=== PATIENT | female | born 1985 | race Two or more races ===

== ENCOUNTER 2017-01-28 16:01 | Emergency (ER) | payer MEDICAID ==
[~2017-01-28] VITALS: Ht 162.6 cm; Wt 117.9 kg
[2017-01-28] MEDS ORDERED: NKM (16:14)
[2017-01-28 16:46] VITALS: BP 123/85
[2017-01-28 16:46] LABS: APPEARANCE,URINE CLEAR; KETONES,URINE 1+ (NEGATIVE); LEUKOCYTE ESTERASE ,URINE 1+ (NEGATIVE); NITRITE,URINE NEGATIVE (NEGATIVE); PH,URINE 5 (4.5-8.0); PROTEIN,URINE 1+ (NEGATIVE); UROBILINOGEN,URINE 1 MG/DL (0.0-1.0)
[2017-01-28 17:17] LABS: BACTERIA,URINE FEW /HPF; SQUAMOUS EPITHELIAL CELL,UR FEW /LPF (NONE/OCC); WBC,URINE 0-2 /HPF (0 - 2)
--- NOTE | 2017-01-28 17:43 | Diagnostic Imaging Report ---
Indication: Right-sided pelvic pain, lower abdominal pain and 3 days, negative urine test Technique: Transabdominal and transvaginal images Comparison: None Findings: Uterus measures 9.1 cm length by 6.3 cm AP. Endometrium measures 7 mm thick. There are multiple myometrial fibroids. Largest of these measures 4.3 cm in diameter. There is a moderate amount of free cul-de-sac fluid. Right ovary measures 4 cm in length and contains a hemorrhagic follicle. Left ovary measures 2.8 cm in length. Impression: Uterine fibroids Hemorrhagic right ovarian follicle. Possibly source of patient's pain Moderate free cul-de-sac fluid, most likely physiologic
[2017-01-28 18:09] VITALS: BP 120/81
[2017-01-28] MEDS ORDERED: TRAMADOL HCL50 MG ORAL (18:09)
[2017-01-28 18:11] VITALS: BP 120/81
--- NOTE | 2017-01-28 19:09 | Emergency Room Report ---
History of Present Illness General Chief Complaint: Pelvic Pain Source: Patient Present Illness HPI 31-year-old female presents ED for evaluation. Patient was referred by PMD for evaluation of lower abdominal pain x3 days. Patient starts pain as suprapubic, pressure, 5/10, nonradiating. Denies dysuria or hematuria. Denies fevers or chills. Denies flank pain. Denies vaginal bleeding or discharge. No other aggravating or leading factors. Denies any other associated symptoms Allergies: Coded Allergies: No Known Allergies (Unverified , 01/28/17) Patient History Past Medical History: none Past Surgical History: none Pertinent Family History: none Social History: Denies: smoking, alcohol use, drug use Last Menstrual Period: 01/09/17 Now: No Immunizations: UTD Reviewed Nursing Documentation: PMH: Agreed, PSxH: Agreed Nursing Documentation-PMH Past Medical History: No Stated History Review of Systems All Other Systems: negative except mentioned in HPI Physical Exam Vital Signs Date Time Temp Pulse Resp B/P (MAP) Pulse Ox O2 Delivery O2 Flow Rate FiO2 01/28/17 16:09 97.7 77 16 123/85 100 Room Air Sp02 EP Interpretation: reviewed, normal General Appearance: no apparent distress, alert, GCS 15, non-toxic Head: normocephalic, atraumatic Eyes: bilateral eye normal inspection, bilateral eye PERRL ENT: hearing grossly normal, normal pharynx, no angioedema, normal voice Neck: full range of motion, supple/symm/no masses Respiratory: chest non-tender, lungs clear, normal breath sounds, speaking full sentences Cardiovascular #1: regular rate, rhythm, no edema Cardiovascular #2: 2+ carotid (R), 2+ carotid (L), 2+ radial (R), 2+ radial (L) , 2+ dorsalis pedis (R), 2+ dorsalis pedis (L) Gastrointestinal: normal bowel sounds, soft, non-distended, no guarding, no rebound, tenderness - suprapubic Rectal: deferred Genitourinary: normal inspection, no CVA tenderness Musculoskeletal: back normal, gait/station normal, normal range of motion, non- tender Neurologic: alert, oriented x3, responsive, motor strength/tone normal, sensory intact, speech normal Psychiatric: judgement/insight normal, memory normal, mood/affect normal, no suicidal/homicidal ideation Reflexes: 3+ bicep (R), 3+ bicep (L), 3+ tricep (R), 3+ tricep (L), 3+ knee (R) , 3+ knee (L) Skin: normal color, no rash, warm/dry, well hydrated Lymphatic: no adenopathy Medical Decision Making Diagnostic Impression: Primary Impression: Fibroids Qualified Codes: D25.9 - Leiomyoma of uterus, unspecified Additional Impression: Ovarian cyst Qualified Codes: N83.209 - Unspecified ovarian cyst, unspecified side ER Course Hospital Course 31-year-old female presents to ED complaining of lower abdominal pain Differential diagnoses include: gastrits, gastroenterits, ectopic , ovarian torsion/cyst, UTI Clinical course Patient placed on stretcher in ED. After initial history and physical I ordered UA, pelvic ultrasound. Pelvic ultrasound- fibroids, ruptured ovarian cyst I discussed findings with the patient. Recommend followup with RESIDENT PROGRAMS ASSISTANT and appropriate analgesia Diagnosis - fibroids, ovarian cyst Stable and discharged to home with Rx Tramadol. Followup with PMD/RESIDENT PROGRAMS ASSISTANT. Return to ED if symptoms recur or worsen Labs Test 01/28/17 16:25 Urine Color Yellow Urine Appearance Clear Urine pH 5 (4.5-8.0) Urine Specific [place] 1.025 (1.005-1.035) Urine Protein 1+ (NEGATIVE) Urine Glucose (UA) Negative (NEGATIVE) Urine Ketones 1+ (NEGATIVE) Urine Occult Blood 1+ (NEGATIVE) Urine Nitrite Negative (NEGATIVE) Urine Bilirubin Negative (NEGATIVE) Urine Urobilinogen 1 MG/DL (0.0-1.0) Urine Leukocyte Esterase 1+ (NEGATIVE) Urine RBC 2-4 /HPF (0 - 2) Urine WBC 0-2 /HPF (0 - 2) Urine Squamous Epithelial Cells Few /LPF (NONE/OCC) Urine Bacteria Few /HPF (NONE) Urine HCG, Qualitative Negative CT/MRI/US Diagnostic Results CT/MRI/US Diagnostic Results : Imaging Test Ordered: Pelvic US Impression hemorrhagic cyst, fibroids Last Vital Signs Date Time Temp Pulse Resp B/P (MAP) Pulse Ox O2 Delivery O2 Flow Rate FiO2 01/28/17 18:15 97.7 01/28/17 18:11 71 17 120/81 100 Room Air Status: improved Disposition: HOME, SELF-CARE Condition: Stable Scripts Tramadol Hcl* (ULTRAM*) 50 Mg Tablet 50 MG ORAL Q6H Y for For Pain, #20 TAB 0 Refills Prov: BRIDGET FRASER M.D. 01/28/17 Patient Instructions: Abdominal or Pelvic Ultrasound, [id number] BRIDGET FRASER M.D. Jan 28, 2017 19:09
== END 2017-01-28 18:16 | disposition home or self-care (01) ==
LOC: EMR 16:35
DX: D25.9 Leiomyoma of uterus, unspecified (principal); N83.209 Unspecified ovarian cyst, unspecified side
CPT/HCPCS: 76830; 76856; 81003; 81025; 99284

== ENCOUNTER 2017-03-02 09:40 | Emergency (ER) | payer MEDICAID ==
[~2017-03-02] VITALS: Ht 162.6 cm; Wt 119.3 kg
[~2017-03-02 09:40] MED LIST: NKM; TRAMADOL HCL50 MG ORAL
[2017-03-02] MEDS ORDERED: NORCO 5-325 TA1 EACH ORAL (09:49)
[2017-03-02 11:21] LABS: BASOPHILS % (AUTO) 1.2 % (0.0-2.0); EOSINOPHILS % (AUTO) 5.3 % (0.0-3.0); HEMATOCRIT 40.5 % (37.0-47.0); HEMOGLOBIN 13.3 G/DL (12.0-16.0); LYMPHOCYTES % (AUTO) 26.4 % (20.0-45.0); MEAN CORPUSCULAR VOLUME 88 FL (80-99); MONOCYTES % (AUTO) 5.5 % (1.0-10.0); NEUTROPHILS % (AUTO) 61.7 % (45.0-75.0); PLATELET COUNT 267 K/UL (150-450); RED BLOOD COUNT 4.62 M/UL (4.20-5.40); RED CELL DISTRIBUTION WIDTH 12.5 % (11.6-14.8); WHITE BLOOD COUNT 6.8 K/UL (4.8-10.8)
[2017-03-02 11:24] LABS: APPEARANCE,URINE CLEAR; GLUCOSE, URINE (UA) NEGATIVE (NEGATIVE); KETONES,URINE NEGATIVE (NEGATIVE); LEUKOCYTE ESTERASE ,URINE 2+ (NEGATIVE); NITRITE,URINE NEGATIVE (NEGATIVE); PH,URINE 5 (4.5-8.0); PROTEIN,URINE NEGATIVE (NEGATIVE)
[2017-03-02 11:25] LABS: COLOR,URINE YELLOW
[2017-03-02 11:36] LABS: BILIRUBIN, URINE NEGATIVE (NEGATIVE); UROBILINOGEN,URINE NORMAL MG/DL (0.0-1.0)
[2017-03-02 11:37] LABS: ANION GAP 9 mmol/L (5-15); BLOOD UREA NITROGEN 11 mg/dL (7-18); CALCIUM 7.9 MG/DL (8.5-10.1); CARBON DIOXIDE 25 MMOL/L (21-32); CHLORIDE 102 MMOL/L (98-107); CREATININE 0.8 MG/DL (0.55-1.30); SODIUM 136 MMOL/L (136-145)
[2017-03-02 11:38] LABS: ALANINE AMINOTRANSFERASE 22 U/L (12-78); ALBUMIN 3.4 G/DL (3.4-5.0); ALBUMIN/GLOBULIN RATIO 0.8 (1.0-2.7); ALKALINE PHOSPHATASE 54 U/L (46-116); ASPARTATE AMINO TRANSFERASE 19 U/L (15-37); BILIRUBIN,TOTAL 0.4 MG/DL (0.2-1.0)
[2017-03-02 12:45] VITALS: BP 117/82
[2017-03-02 12:46] VITALS: BP 117/82
--- NOTE | 2017-03-02 13:35 | Emergency Room Report ---
History of Present Illness General Chief Complaint: Abdominal Pain Source: Patient Present Illness HPI 31-year-old female with 2-3 days of right upper quadrant pain Pain worse with eating Denies nausea, vomiting, diarrhea, fever or chills Patient has had multiple children previously No control No known history of gallstone disease Has known fibroids Allergies: Coded Allergies: No Known Allergies (Unverified , 01/28/17) Patient History Past Medical History: none Past Surgical History: none Pertinent Family History: none Social History: Denies: smoking, alcohol use, drug use Last Menstrual Period: 02/05/17 Now: No Immunizations: UTD Reviewed Nursing Documentation: PMH: Agreed, PSxH: Agreed Nursing Documentation-PMH Past Medical History: No Stated History Review of Systems All Other Systems: negative except mentioned in HPI Physical Exam Vital Signs Date Time Temp Pulse Resp B/P (MAP) Pulse Ox O2 Delivery O2 Flow Rate FiO2 03/02/17 09:44 98.1 74 17 115/70 100 Room Air Sp02 EP Interpretation: reviewed, normal General Appearance: normal inspection, well appearing, no apparent distress, alert, GCS 15, non-toxic Head: normocephalic, atraumatic Eyes: bilateral eye PERRL, bilateral eye EOMI ENT: normal ENT inspection, hearing grossly normal, normal pharynx, no angioedema, normal voice, TMs + canals normal, uvula midline, moist mucus membranes Neck: normal inspection, full range of motion, supple, thyroid normal, no meningismus, no bony tend Respiratory: normal inspection, lungs clear, normal breath sounds, no rhonchi, no respiratory distress, no retraction, no accessory muscle use, no wheezing, speaking full sentences Cardiovascular #1: regular rate, rhythm, no edema, no JVD, normal capillary refill Gastrointestinal: normal inspection, normal bowel sounds, soft, no mass, no peritonitis, non-distended, no guarding, no hernia, no pulsatile mass, other - mild RUQ ttp, no peritonitis Genitourinary: no CVA tenderness Musculoskeletal: normal inspection, back normal, normal range of motion, no calf tenderness, pelvis stable, Jhoan's Sign negative Neurologic: normal inspection, alert, oriented x3, responsive, health safety instructor III-XII nml as tested, motor strength/tone normal, cerebellar normal, normal gait, speech normal Psychiatric: normal inspection, judgement/insight normal, mood/affect normal, no suicidal/homicidal ideation, no delusions Skin: normal inspection, normal color, no rash Lymphatic: normal inspection, no adenopathy Medical Decision Making Diagnostic Impression: Primary Impression: Cholelithiasis Qualified Codes: K80.80 - Other cholelithiasis without obstruction ER Course Ultrasound shows large gallstone versus possible multiple smaller stones Mild wall thickening no Pericholecystic fluid Vital signs are stable, afebrile Labs did not demonstrate leukocytosis or LFTs abnormality Diagnosis cholelithiasis, likely cholecystitis given above normal findings advised patient avoid spicy food, asked primary care doctor for referral for general surgery ER course: Patient has remained stable during ED stay. Disposition: Patient is to be discharged to home. Patient is instructed to follow up with their primary care doctor within 5 days. Patient is instructed to follow up with general surgery in 1 week Strict return precautions discussed with patient such as fever, chills, worsening/severe pain, nausea, vomiting, which may indicate severe illness. Patient verbalizes understanding and agrees with plan. Please note that this Emergency Department Report was dictated using [employer] machine operator technology software, occasionally this can lead to erroneous entry secondary to interpretation by the dictation equipment Last Vital Signs Date Time Temp Pulse Resp B/P (MAP) Pulse Ox O2 Delivery O2 Flow Rate FiO2 03/02/17 12:46 98.1 80 17 117/82 99 Room Air Status: improved Disposition: HOME, SELF-CARE Condition: Improved Referrals: [facility] [place],REFERRING Patient Instructions: Cholelithiasis, [id number] Additional Instructions: please do not eat any spicy food ask your doctor for referral to general surgeon to evaluate you for gallstones return to ER for worsening pain associated with fever and vomiting RAS NEWELL M.D. Mar 02, 2017 13:35
--- NOTE | 2017-03-06 10:34 | Diagnostic Imaging Report ---
Indication: Abdominal pain Technique: Ultrasound of the abdomen. Comparison: None Findings: Examination is technically limited. The pancreas is incompletely visualized. Visualized portions are unremarkable. Liver is enlarged measuring approximately 17.6 cm. No focal liver lesions are identified. Visualized portions of the main portal vein and the hepatic veins are grossly unremarkable although incompletely evaluated. The gallbladder is unremarkable without evidence of stones. Gallbladder wall thickness is within normal limits. Sonographic Hernandez's is negative. Common bile duct measures 3 mm. Bilateral kidneys demonstrate normal echogenicity. There is an apparent cyst in the left kidney measuring 2.1 cm. No sonographically evident renal stones are identified. The spleen is normal in size and echogenicity. The visualized aorta is normal in caliber. Visualized portions of the inferior vena cava are unremarkable. Impression: Technically limited examination. Echogenic shadowing nonmobile focus in the region of the gallbladder suggestive of gallstone. Sonographic Hernandez sign reportedly positive. Consider CT or HIDA scan for further evaluation. Left renal cyst. Mild hepatomegaly.
== END 2017-03-02 12:46 | disposition home or self-care (01) ==
LOC: EMR 10:00
DX: K80.20 Calculus of gallbladder without cholecystitis without obstruction (principal)
CPT/HCPCS: 36415; 76700; 80053; 81003; 81025; 83690; 85025; 99282

== ENCOUNTER 2018-09-20 13:10 | Emergency (ER) | payer MEDICAID, OTHER ==
[~2018-09-20] VITALS: Ht 162.6 cm; Wt 124.3 kg
[~2018-09-20 13:10] MED LIST changes: +NORCO 5-325 TA1 EACH ORAL
[2018-09-20 13:17] VITALS: BP 144/92
--- NOTE | 2018-09-20 13:20 | NUR ---
ED Nurse Note: Patient walked into ED c/o right hand swelling and pain at work. patient is alert awake x4 ambulatory breathing unlabored and even.
[2018-09-20] MEDS ORDERED: Naproxen 500mg tab ORAL ONE (13:45)
--- NOTE | 2018-09-20 13:57 | Emergency Room Report ---
History of Present Illness General Chief Complaint: Upper Extremity Injury Source: Patient Present Illness HPI 33-year-old female with no significant past medical history here complaining of pain and swelling right hand that started at work today. Patient denies any fall or injury. Reports that she was carrying supplies at work as she noticed her hand started to swell and having a 10 out of 10 pain without radiation. Denies tingling and numbness. Has not taken medication for pain. Patient is right-handed and reports that she usually lifts heavy objects at work. Denies all other injuries, chest pain, shortness of breath, palpitation, and no other associated symptoms. Patient is requesting a Worker's Compensation Allergies: Coded Allergies: No Known Allergies (Unverified , 01/28/17) Patient History Past Medical History: see triage record Past Surgical History: unable to obtain Pertinent Family History: none Last Menstrual Period: 09/16/18 Now: No Immunizations: UTD Reviewed Nursing Documentation: PMH: Agreed; PSxH: Agreed Nursing Documentation-PMH Past Medical History: No Stated History Review of Systems All Other Systems: negative except mentioned in HPI Physical Exam Vital Signs Date Time Temp Pulse Resp B/P (MAP) Pulse Ox O2 Delivery O2 Flow Rate FiO2 09/20/18 13:17 98.1 80 18 144/92 (109) 96 Room Air Sp02 EP Interpretation: reviewed, normal General Appearance: normal inspection, well appearing, no apparent distress, alert, GCS 15 Head: normocephalic, atraumatic Eyes: bilateral eye normal inspection, bilateral eye PERRL ENT: normal ENT inspection, hearing grossly normal, normal pharynx Neck: normal inspection, full range of motion, supple Respiratory: normal inspection, chest non-tender, lungs clear, normal breath sounds, no wheezing Cardiovascular #1: normal inspection, regular rate, rhythm, no edema, no gallop , normal capillary refill Cardiovascular #2: 2+ radial (R), 2+ radial (L) Gastrointestinal: normal inspection, non tender, soft Rectal: deferred Genitourinary: no CVA tenderness Musculoskeletal: back normal, non-tender, swelling - Right hand Neurologic: normal inspection, alert, oriented x3, responsive Psychiatric: normal inspection, judgement/insight normal Skin: no rash Lymphatic: normal inspection, no adenopathy Medical Decision Making PA Attestation All my diagnosis and treatment plans were reviewed ad discussed with my supervising physician Dr. Dolan Diagnostic Impression: Primary Impression: Sprain of right hand ER Course 33-year-old female with no significant past medical history here complaining of pain and swelling right hand that started at work today. Patient denies any fall or injury. Reports that she was carrying supplies at work as she noticed her hand started to swell and having a 10 out of 10 pain without radiation. Denies tingling and numbness. Has not taken medication for pain. Patient is right-handed and reports that she usually lifts heavy objects at work. Denies all other injuries, chest pain, shortness of breath, palpitation, and no other associated symptoms. Patient is requesting a Worker's Compensation Ddx considered but are not limited to : Hand sprain, strain, fracture Vital signs: are WNL, pt. is afebrile H&PE are most consistent with: ORDERS: Hand x-ray, naproxen, ED INTERVENTIONS: Chad wrap DISCHARGE: At this time pt. is stable for d/c to home. Will provide printed patient care instructions, and any necessary prescriptions. Care plan and follow up instructions have been discussed with the patient prior to discharge. Take medication as directed alternate between icing and heating the affected area follow-up with your primary care provider Other X-Ray Diagnostic Results Other X-Ray Diagnostic Results : X-Ray ordered: hand # of Views/Limited Vs Complete: 2 View Indication: Pain EP Interpretation: Yes SERA Xray: Interpretation reviewed, by supervising MD, and agrees with findings. Interpretation: no dislocation, no soft tissue swelling, no fractures Impression: No acute disease Electronically Signed by: Patrick Short PA-C Last Vital Signs Date Time Temp Pulse Resp B/P (MAP) Pulse Ox O2 Delivery O2 Flow Rate FiO2 09/20/18 13:17 98.1 80 18 144/92 (109) 96 Room Air Disposition: HOME, SELF-CARE Condition: Stable Scripts Naproxen* (NAPROXEN*) 500 Mg Tablet 500 MG ORAL TWICE A DAY, #30 TAB Prov: Patrick Washington 09/20/18 Patient Instructions: Edema, [id number] Additional Instructions: Swelling and pain secondary to splinting of your right hand keep the Chad bandage on avoid strenuous physical activity alternate is been icing and heating the affected area take medication as directed follow-up with your primary care provider Patrick Washington Sep 20, 2018 13:57
[2018-09-20] MEDS ORDERED: NAPROXEN500 M2 ORAL (13:58)
[2018-09-20 14:14] VITALS: BP 144/92
--- NOTE | 2018-09-20 14:14 | NUR ---
ER DISCHARGE NOTE: Patient is cleared to be discharged per BRANDIN GORE , pt is aox4, on room air, with stable vital signs. pt was given dc and prescription instructions, pt was able to verbalize understanding, pt id band removed without complications. pt is able to ambulate with steady gait. pt took all belongings.
--- NOTE | 2018-09-20 14:34 | Diagnostic Imaging Report ---
EXAM: XR Right Hand Complete, 3 or More Views CLINICAL HISTORY: TRAUMA TECHNIQUE: Frontal, lateral and oblique views of the right hand. COMPARISON: No relevant prior studies available. FINDINGS: Bones/joints: No acute displaced fracture or dislocation identified. Visualized joint spaces appear unremarkable. Soft tissues: Mild soft tissue swelling adjacent to the metacarpophalangeal joints. No radiodense foreign bodies. No soft tissue gas lucencies. IMPRESSION: 1. No acute displaced fracture or dislocation identified. 2. Mild soft tissue swelling adjacent to the metacarpophalangeal joints. No radiodense foreign bodies. No soft tissue gas lucencies.
== END 2018-09-20 14:14 | disposition home or self-care (01) ==
LOC: EMR 13:57
DX: S63.91XA Sprain of unspecified part of right wrist and hand, initial encounter (principal); X58.XXXA Exposure to other specified factors, initial encounter; Y92.9 Unspecified place or not applicable; Y99.0 Civilian activity done for income or pay
CPT/HCPCS: 99283

== ENCOUNTER 2019-08-09 12:56 | Emergency (ER) | payer OTHER ==
[~2019-08-09] VITALS: Ht 162.6 cm; Wt 123.8 kg
[~2019-08-09 12:56] MED LIST changes: +NAPROXEN500 M2 ORAL
[2019-08-09 13:09] VITALS: BP 116/66
--- NOTE | 2019-08-09 13:10 | NUR ---
ED Nurse Note: Pt from home abd pain since this morning. Pt is AOx4, calm and cooperative. Denies N/V/D. VSS, on RA, afebrile on traige. Placed on bed.
[2019-08-09] MEDS ORDERED: Omnipaque-300 100ml vial INJ PRN (13:45)
--- NOTE | 2019-08-09 13:48 | Emergency Room Report ---
History of Present Illness General Chief Complaint: Abdominal Pain Source: Patient (Gentry Dolan MD) Present Illness HPI Patient is a 33-year-old female presents after increased abdominal pain. Reports bilateral abdominal pain radiating to her lower abdomen. Denies any fever. Increased nausea. Pain is worse with supine position. Patient states she did not eat this morning. Had not been having any vomiting or diarrhea. Reports having similar symptoms with ovarian cyst rupture in the past. Denies any diarrhea. No prior abdominal surgeries. (Gentry Dolan MD) Allergies: Coded Allergies: No Known Allergies (Unverified , 01/28/17) COVID-19 Screening Contact w/high risk pt: No Recent Travel to affected area: No Experienced COVID-19 symptoms?: No COVID-19 Testing performed FLUID POWER MECHANIC: No (Gentry Dolan MD) Patient History Past Medical History: see triage record Last Menstrual Period: 08/03/19 Now: No Reviewed Nursing Documentation: PMH: Agreed; PSxH: Agreed (Gentry Dolan MD) Nursing Documentation-PMH Past Medical History: No History, Except For (Gentry Dolan MD) Review of Systems All Other Systems: negative except mentioned in HPI (Gentry Dolan MD) Physical Exam Vital Signs Date Time Temp Pulse Resp B/P (MAP) Pulse Ox O2 Delivery O2 Flow Rate FiO2 08/09/19 13:01 98.4 86 16 116/66 (83) 100 Room Air Sp02 EP Interpretation: reviewed, normal General Appearance: normal inspection, well appearing, no apparent distress, alert, GCS 15, obese Head: atraumatic ENT: normal ENT inspection, hearing grossly normal, normal voice Neck: normal inspection, full range of motion, supple, no bony tend Respiratory: normal inspection, lungs clear, normal breath sounds, no respiratory distress, no retraction, no wheezing Cardiovascular #1: regular rate, rhythm, no edema Gastrointestinal: normal bowel sounds, soft, no guarding, no hernia, tenderness - right upper abdomen Genitourinary: no CVA tenderness Musculoskeletal: normal inspection, back normal, normal range of motion Neurologic: alert, motor strength/tone normal, tower dragline operator III-XII nml as tested, oriented x3, responsive, speech normal, normal inspection Psychiatric: normal inspection, judgement/insight normal, mood/affect normal (Gentry Dolan MD) Medical Decision Making Diagnostic Impression: Primary Impression: Cholelithiasis Additional Impressions: Leukocytosis Fibroids ER Course Patient presented for abdominal pain. Differential diagnosis include was not limited to cholelithiasis, bowel obstruction, kidney stone among others. Because of complexity of patient's case laboratory tests and imaging studies were ordered.Patient laboratory testing showed some slight leukocytosis. She was given IV pain medications. Patient was endorsed to Dr. Smith pending CT imaging for further evaluation of abdominal pain. (Gentry Dolan MD) ER Course Please see above note. Patient signed out to me to review CT scan of the abdomen. Repeat exam 1725. Pain improved. No guarding or rebound. Discussed results, treatment plan and need to follow up. Laboratory Tests Test 08/09/19 13:50 08/09/19 14:30 White Blood Count 15.7 K/UL (4.8-10.8) H Red Blood Count 4.73 M/UL (4.20-5.40) Hemoglobin 13.2 G/DL (12.0-16.0) Hematocrit 41.5 % (37.0-47.0) Mean Corpuscular Volume 88 FL (80-99) Mean Corpuscular Hemoglobin 27.9 PG (27.0-31.0) Mean Corpuscular Hemoglobin Concent 31.7 G/DL (32.0-36.0) L Red Cell Distribution Width 14.1 % (11.6-14.8) Platelet Count 274 K/UL (150-450) Mean Platelet Volume 9.4 FL (6.5-10.1) Neutrophils (%) (Auto) 82.6 % (45.0-75.0) H Lymphocytes (%) (Auto) 9.6 % (20.0-45.0) L Monocytes (%) (Auto) 4.5 % (1.0-10.0) Eosinophils (%) (Auto) 2.6 % (0.0-3.0) Basophils (%) (Auto) 0.7 % (0.0-2.0) Prothrombin Time 10.7 SEC (9.30-11.50) Prothrombin Time INR 1.0 (0.9-1.1) Activated Partial Thromboplast Time 26 SEC (23-33) Sodium Level 137 MMOL/L (136-145) Potassium Level 4.1 MMOL/L (3.5-5.1) Chloride Level 102 MMOL/L (98-107) Carbon Dioxide Level 25 MMOL/L (21-32) Anion Gap 10 mmol/L (5-15) Blood Urea Nitrogen 13 mg/dL (7-18) Creatinine 0.9 MG/DL (0.55-1.30) Estimated Glomerular Filtration Rate > 60 mL/min (>60) Glucose Level 93 MG/DL (74-106) Calcium Level 8.5 MG/DL (8.5-10.1) Total Bilirubin 0.5 MG/DL (0.2-1.0) Aspartate Amino Transferase (AST) 46 U/L (15-37) H Alanine Aminotransferase (ALT) 31 U/L (12-78) Alkaline Phosphatase 61 U/L (46-116) Total Protein 7.3 G/DL (6.4-8.2) Albumin 3.5 G/DL (3.4-5.0) Globulin 3.8 g/dL Albumin/Globulin Ratio 0.9 (1.0-2.7) L Lipase 143 U/L (73-393) Urine Color Yellow Urine Appearance Clear Urine pH 5 (4.5-8.0) Urine Specific [place] 1.020 (1.005-1.035) Urine Protein 1+ (NEGATIVE) H Urine Glucose (UA) Negative (NEGATIVE) Urine Ketones Negative (NEGATIVE) Urine Blood 5+ (NEGATIVE) H Urine Nitrite Negative (NEGATIVE) Urine Bilirubin Negative (NEGATIVE) Urine Urobilinogen Normal MG/DL (0.0-1.0) Urine Leukocyte Esterase 1+ (NEGATIVE) H Urine RBC 15-20 /HPF (0 - 2) H Urine WBC 5-10 /HPF (0 - 2) H Urine Squamous Epithelial Cells Many /LPF (NONE/OCC) H Urine Bacteria Few /HPF (NONE) Urine HCG, Qualitative Negative (NEGATIVE) (Hubert Smith MD) CT/MRI/US Diagnostic Results CT/MRI/US Diagnostic Results : Imaging Test Ordered: Abdomen pelvis Impression IMPRESSION: 1. Trace pelvic free fluid is likely physiologic. 2. Cholelithiasis. No biliary dilatation. (Hubert Smith MD) Last Vital Signs Date Time Temp Pulse Resp B/P (MAP) Pulse Ox O2 Delivery O2 Flow Rate FiO2 08/09/19 13:09 86 16 Room Air 08/09/19 13:09 98.4 116/66 100 Status: unchanged (Gentry Dolan MD) Last Vital Signs Date Time Temp Pulse Resp B/P (MAP) Pulse Ox O2 Delivery O2 Flow Rate FiO2 08/09/19 17:39 98.2 84 17 122/68 98 Room Air Status: improved (Hubert Smith MD) Disposition: HOME, SELF-CARE Condition: Improved Scripts Tramadol Hcl* (ULTRAM*) 50 Mg Tablet 50 MG ORAL Q6H PRN for For Pain, #8 TAB 0 Refills Prov: Hubert Smith MD 08/09/19 Famotidine* (Pepcid 20mg tablet*) 20 Mg Tablet 20 MG ORAL DAILY, #20 TAB 0 Refills Prov: Hubert Smith MD 08/09/19 Gentry Dolan MD Aug 09, 2019 13:48 Hubert Smith MD Aug 09, 2019 17:31
--- NOTE | 2019-08-09 13:50 | NUR ---
ED Nurse Note: blood and urine collected, sent to labs.
[2019-08-09 14:21] LABS: BASOPHILS % (AUTO) 0.7 % (0.0-2.0); EOSINOPHILS % (AUTO) 2.6 % (0.0-3.0); HEMATOCRIT 41.5 % (37.0-47.0); HEMOGLOBIN 13.2 G/DL (12.0-16.0); LYMPHOCYTES % (AUTO) 9.6 % (20.0-45.0); MEAN CORPUSCULAR VOLUME 88 FL (80-99); MONOCYTES % (AUTO) 4.5 % (1.0-10.0); NEUTROPHILS % (AUTO) 82.6 % (45.0-75.0); PLATELET COUNT 274 K/UL (150-450); RED BLOOD COUNT 4.73 M/UL (4.20-5.40); RED CELL DISTRIBUTION WIDTH 14.1 % (11.6-14.8); WHITE BLOOD COUNT 15.7 K/UL (4.8-10.8)
[2019-08-09 14:39] LABS: ANION GAP 10 mmol/L (5-15); BLOOD UREA NITROGEN 13 mg/dL (7-18); CALCIUM 8.5 MG/DL (8.5-10.1); CARBON DIOXIDE 25 MMOL/L (21-32); CHLORIDE 102 MMOL/L (98-107); CREATININE 0.9 MG/DL (0.55-1.30); POTASSIUM 4.1 MMOL/L (3.5-5.1); SODIUM 137 MMOL/L (136-145)
[2019-08-09 14:43] LABS: ALANINE AMINOTRANSFERASE 31 U/L (12-78); ALBUMIN 3.5 G/DL (3.4-5.0); ALBUMIN/GLOBULIN RATIO 0.9 (1.0-2.7); ALKALINE PHOSPHATASE 61 U/L (46-116); ASPARTATE AMINO TRANSFERASE 46 U/L (15-37); BILIRUBIN,TOTAL 0.5 MG/DL (0.2-1.0)
[2019-08-09 14:48] LABS: APPEARANCE,URINE CLEAR; BILIRUBIN, URINE NEGATIVE (NEGATIVE); GLUCOSE, URINE (UA) NEGATIVE (NEGATIVE); KETONES,URINE NEGATIVE (NEGATIVE); LEUKOCYTE ESTERASE ,URINE 1+ (NEGATIVE); NITRITE,URINE NEGATIVE (NEGATIVE); PH,URINE 5 (4.5-8.0); PROTEIN,URINE 1+ (NEGATIVE); UROBILINOGEN,URINE NORMAL MG/DL (0.0-1.0)
[2019-08-09] MEDS ORDERED: Ketorolac 30mg Inj IV ONE (15:00)
[2019-08-09 15:05] LABS: COLOR,URINE YELLOW
--- NOTE | 2019-08-09 15:15 | NUR ---
ED Nurse Note: Pt was taken to CT, on stable condition.
--- NOTE | 2019-08-09 15:30 | NUR ---
ED Nurse Note: Pt returned from CT on stable condition.
--- NOTE | 2019-08-09 15:44 | Diagnostic Imaging Report ---
EXAM: CT Abdomen and Pelvis With Intravenous Contrast CLINICAL HISTORY: ABD PAIN TECHNIQUE: Axial computed tomography images of the abdomen and pelvis with intravenous contrast. CTDI is 24.8 mGy and DLP is 1342.1 mGy-cm. One or more of the following dose reduction techniques were used: automated exposure control, adjustment of the mA and/or kV according to patient size, use of iterative reconstruction technique. COMPARISON: No relevant prior studies available. FINDINGS: Lung bases: No significant abnormality. 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 No concerning focal lesions. Gallbladder and bile ducts: Cholelithiasis. No biliary dilatation. Pancreas: No significant abnormality. Spleen: No significant abnormality. Adrenals: No significant abnormality. Kidneys and ureters: No significant abnormality. No hydronephrosis. Stomach and bowel: No significant abnormality. Bowel is nondilated. PELVIS: Appendix: No findings to suggest acute appendicitis. Bladder: No significant abnormality. Reproductive: Myomatous uterus. ABDOMEN and PELVIS: Intraperitoneal space: Trace pelvic free fluid. No free air. No loculated fluid collection. Bones/joints: No acute fracture or malalignment. Soft tissues: No significant abnormality. Vasculature: No significant abnormality. No abdominal aortic aneurysm. Lymph nodes: No significant abnormality. IMPRESSION: 1. Trace pelvic free fluid is likely physiologic. 2. Cholelithiasis. No biliary dilatation.
[2019-08-09] MEDS ORDERED: TRAMADOL HCL50 MG ORAL (17:34)
[2019-08-09] MEDS ORDERED: FAMOTIDINE20 MG ORAL (17:34)
[2019-08-09 17:39] VITALS: BP 122/68
--- NOTE | 2019-08-09 17:39 | NUR ---
ER DISCHARGE NOTE: Patient is cleared to be discharged per ERMD, pt is aox4, on room air, with stable vital signs. pt was given dc and prescription instructions, pt was able to verbalize understanding, pt id band and iv site removed without complications. pt is able to ambulate with steady gait. pt took all belongings.
== END 2019-08-09 17:38 | disposition home or self-care (01) ==
LOC: EMR 14:37
DX: K80.20 Calculus of gallbladder without cholecystitis without obstruction (principal); D72.829 Elevated white blood cell count, unspecified; D25.9 Leiomyoma of uterus, unspecified; E66.9 Obesity, unspecified; Z68.42 Body mass index [BMI] 45.0-49.9, adult
CPT/HCPCS: 36415; 74177; 80053; 81003; 81025; 83690; 85025; 85610; 85730; 96374; J1885; Q9967; Z7502; 99284